=== PATIENT | male | born 1955 | race Caucasian/White ===

== ENCOUNTER 2019-02-02 14:42 | Emergency (ER) | payer BC, OTHER ==
[~2019-02-02] VITALS: Ht 177.8 cm; Wt 78.2 kg
--- NOTE | 2019-02-02 16:10 | Diagnostic Imaging Report ---
CT of the abdomen and pelvis, without contrast, 02/02/2019. History: Right lower quadrant pain. Comparison: None available. Technique: Multidetector CT scanning of the abdomen and pelvis was performed from the level of the lung bases to the inferior pubic rami without intravenous or oral contrast. Coronal and sagittal multiplanar reformations were obtained. RADIATION DOSE: Total DLP: 720 mGy*cm Dose modulation, iterative reconstruction, and/or weight based adjustment of the mA/kV was utilized to reduce the radiation dose to as low as reasonably achievable. Discussion: Examination is limited without contrast. Lung bases: No visualized abnormalities. Abdomen: The liver, gallbladder, biliary tree, spleen, pancreas, adrenal glands, and kidneys are unremarkable. The abdominal aorta is within normal limits for size. There is no bowel dilatation. Appendix is visualized and is normal. Scattered diverticuli are present within the distal colon without evidence of adjacent inflammation. There is no evidence of adenopathy or free fluid. Pelvis: The bladder, prostate, and seminal vesicles are unremarkable. There is no evidence of free fluid or adenopathy. Small fat-containing inguinal hernias are present bilaterally. Bones and soft tissues: Degenerative changes are present throughout the lumbar spine without evidence of lytic or sclerotic lesion. IMPRESSION: Colonic diverticulosis without evidence of diverticulitis. Otherwise unremarkable noncontrast exam. No evidence of cholelithiasis, nephrolithiasis, or appendicitis. Signed by: Hilton Delgado on 02/02/2019 4:07 PM
[2019-02-02 17:23] VITALS: BP 173/92
== END 2019-02-02 17:22 | disposition home or self-care (01) ==
LOC: FSED 14:42
DX: R10.31 Right lower quadrant pain (principal); F17.200 Nicotine dependence, unspecified, uncomplicated
CPT/HCPCS: 74176; 80048; 80076; 81003; 85025; 99283